=== PATIENT | female | born 1990 | race Two or more races ===

== ENCOUNTER → 2017-05-14 | Outpatient (CLI) | payer OTHER ==
[~2017-05-14] MED LIST: ACET50TA PO; IBUP-1114 PO; PRE-TAB3 PO; ZOFR8TAB PO
--- NOTE | 2017-05-15 00:40 | REP ---
Three extremities right hand four views right hand Signed by Nguyễn Hill MD 05/14/2017 05:17 P
--- NOTE | 2017-05-15 00:40 | REP ---
Right wrist four views : There is no fracture or dislocation. Mineralization and joint spaces are normal. There are no calcifications or foreign bodies. Impression: Negative right wrist . Signed by Nguyễn Hill MD 05/14/2017 05:16 P
== END ==
LOC: M LRY 16:50
PROVIDERS: ATTEND Nurse Practitioner Family
DX: M25.531 Pain in right wrist (principal)
CPT/HCPCS: 73110; 73130; G0463